=== PATIENT | male | born 2000 | race Caucasian/White ===

== ENCOUNTER 2024-07-11 05:46 | Day surgery (SDC) | payer BC ==
[2024-07-10 09:58] VITALS: BMI 37.2
[2024-07-11] MEDS ORDERED: Dexmedetomidine 200 MCG/2 ML VIAL ONE (06:48)
[2024-07-11] MEDS ORDERED: SUGAMMADEX SODIUM 200 MG/2 ML VIAL ONE ×2 (06:48→08:21)
[2024-07-11] MEDS ORDERED: Ondansetron PF 4 MG/2 ML Vial ONE (06:48)
[2024-07-11] MEDS ORDERED: fentaNYL PF 100 MCG/2 ML SYRINGE ONE (06:48)
[2024-07-11] MEDS ORDERED: Ketamine In 0.9 % NaCl 50 MG/5 ML SYRINGE ONE (06:48)
[2024-07-11] MEDS ORDERED: Dexamethasone 4 mg/ml Vial ONE (06:48)
[2024-07-11] MEDS ORDERED: PROPOFOL 40 ML ONE (06:48)
[2024-07-11] MEDS ORDERED: Rocuronium Bromide 10 MG/ML (10ML VIAL) ONE (06:48)
[2024-07-11] MEDS ORDERED: Dexamethasone 20 MG/5 ML VIAL ONE (06:48)
[2024-07-11] MEDS ORDERED: Lidocaine 1% PF 5 ML VIAL ONE (06:48)
[2024-07-11] MEDS ORDERED: Ferric Subsulfate 8 ML TOPICAL SOLN ONE (08:19)
[2024-07-11] MEDS ORDERED: fentaNYL 50 mcg/mL 1 mL Vial ONE ×2 (09:39→10:28)
[2024-07-11] MEDS ORDERED: Hydrocodone-Acetamin 15 ML UDCUP ONE (11:02)
== END 2024-07-11 12:05 | disposition home or self-care (01) ==
LOC: SDC 05:46
PROVIDERS: ATTEND Specialist
PROC: 0CTPXZZ Resection of Tonsils, External Approach (ICD-10-PCS; principal; 2024-07-11)
DX: J35.01 Chronic tonsillitis (principal)
CPT/HCPCS: 88304; J1100; J2405; J2704; J3010; J3490

== ENCOUNTER 2024-07-20 21:40 | Inpatient (IN) | payer BC ==
[2024-07-20 22:33] LABS: #Basophils 0.03 10x3/uL (0.0-0.2); %Basophils 0.4 % (0.0-1.0); %Eosinophils 1.5 % (0.0-10.0); %Lymphocytes 32.9 % (21.0-51.0); %Monocytes 17.3 % (0.0-10.0); %Neutrophils 47.5 % (42.0-75.0); Hematocrit 44.5 % (42.0-52.0); Hemoglobin 14.9 g/dL (14.0-18.0); Mean Corpuscular HGB CONC 33.5 g/dL (32.0-36.0); Mean Corpuscular Hemoglobin 30.5 pg (27.0-31.0); Mean Platelet Volume 11.2 fL (7.4-10.4); Platelet Count 214 10x3/uL (130-400); RBC Distribution Width 11.8 % (11.5-14.5); Red Blood Cell (RBC) Count 4.89 mill/uL (4.70-6.10)
[2024-07-20 22:45] LABS: ALT (SGPT) 68 U/L (8-55); AST (SGOT) 48 U/L (5-34); Albumin 3.6 g/dL (3.5-5.0); Alkaline Phosphatase 68 U/L (40-110); Anion Gap 16 mmol/L (10-20); BUN (Urea Nitrogen) 19 mg/dL (8.9-20.6); Bilirubin, Total 0.7 mg/dL (0.2-1.2); Calc. Creatinine Clearance 0 mL/min (70-130); Calcium 9.2 mg/dL (7.8-10.44); Carbon Dioxide 26 mmol/L (22-29); Chloride 103 mmol/L (98-107); Estimated GFR 115; Globulin 3.6 g/dL (2.4-3.5); Glucose 95 mg/dL (70-105); Potassium 3.9 mmol/L (3.5-5.1); Protein, Total 7.2 g/dL (6.0-8.3); Sodium 141 mmol/L (136-145)
[2024-07-20] MEDS ORDERED: Tranexamic Acid 1,000 MG/10 ML VIAL ONE (23:03)
[2024-07-20] MEDS ORDERED: Ondansetron PF 4 MG/2 ML Vial IVP PRN (23:59)
[2024-07-21] MEDS ORDERED: Tranexamic Acid 1,000 MG/10 ML VIAL ONE (00:15)
[2024-07-21] MEDS ORDERED: Ondansetron PF 4 MG/2 ML Vial ONE ×2 (00:28→02:07)
[2024-07-21] MEDS: Tranexamic Acid 500 MG in Syringe 0 ML NEB SCH (01:53)
[2024-07-21] MEDS: Tranexamic Acid 1,000 MG/10 ML VIAL IVP SCH (01:53)
[2024-07-21 01:59] VITALS: BMI 34.4
[2024-07-21] MEDS ORDERED: SUGAMMADEX SODIUM 200 MG/2 ML VIAL ONE (02:07)
[2024-07-21] MEDS ORDERED: Dexamethasone 20 MG/5 ML VIAL ONE (02:07)
[2024-07-21] MEDS ORDERED: Lidocaine 1% PF 5 ML VIAL ONE (02:07)
[2024-07-21] MEDS ORDERED: fentaNYL PF 100 MCG/2 ML SYRINGE ONE (02:07)
[2024-07-21] MEDS ORDERED: PROPOFOL 20 ML ONE ×2 (02:07→02:58)
[2024-07-21] MEDS ORDERED: Rocuronium Bromide 10 MG/ML (10ML VIAL) ONE (02:07)
[2024-07-21] MEDS ORDERED: SUCCINYLCHOLINE/SOD CL,ISO/PF 200 MG/10 ML SYRINGE FS ONE (02:14)
[2024-07-21 02:46] LABS: #Basophils 0.04 10x3/uL (0.0-0.2); %Basophils 0.7 % (0.0-1.0); %Eosinophils 1.6 % (0.0-10.0); %Lymphocytes 34.9 % (21.0-51.0); %Neutrophils 48.3 % (42.0-75.0); Hematocrit 38.2 % (42.0-52.0); Hemoglobin 12.8 g/dL (14.0-18.0); Mean Corpuscular HGB CONC 33.5 g/dL (32.0-36.0); Mean Corpuscular Hemoglobin 30.7 pg (27.0-31.0); Mean Corpuscular Volume 91.6 fL (78.0-98.0); Platelet Count 177 10x3/uL (130-400); RBC Distribution Width 11.9 % (11.5-14.5); Red Blood Cell (RBC) Count 4.17 mill/uL (4.70-6.10)
[2024-07-21 03:33] LABS: ALT (SGPT) 60 U/L (8-55); AST (SGOT) 39 U/L (5-34); Albumin 3.2 g/dL (3.5-5.0); Alkaline Phosphatase 58 U/L (40-110); Anion Gap 14 mmol/L (10-20); BUN (Urea Nitrogen) 19 mg/dL (8.9-20.6); Bilirubin, Total 0.7 mg/dL (0.2-1.2); Calc. Creatinine Clearance 226 mL/min (70-130); Calcium 8.5 mg/dL (7.8-10.44); Carbon Dioxide 24 mmol/L (22-29); Chloride 107 mmol/L (98-107); Estimated GFR 117; Globulin 3.1 g/dL (2.4-3.5); Glucose 104 mg/dL (70-105); Potassium 3.2 mmol/L (3.5-5.1); Protein, Total 6.3 g/dL (6.0-8.3); Sodium 142 mmol/L (136-145)
[2024-07-21] MEDS ORDERED: Promethazine HCl 25 MG/ML VIAL IM PRN (03:44)
[2024-07-21] MEDS ORDERED: Ondansetron HCl/PF 4 MG/2 ML Vial IVP PRN (03:44)
[2024-07-21] MEDS: Sodium Chloride 0.9% 1,000 ML IV SCH (03:48)
[2024-07-21 12:56] LABS: INR-International Normal Ratio 1.1; Prothrombin Time 14.4 sec (12.0-14.7)
[2024-07-21 12:57] LABS: PTT 30.7 sec (22.9-36.1)
[2024-07-21] MEDS: GUAIFENESIN SF SOLN 200 MG/10 ML UDCUP PO PRN (21:43)
[2024-07-21] MEDS: Acetaminophen 325 MG TAB PO PRN (21:43)
[2024-07-21] MEDS: Benzonatate 100 MG CAP PO PRN (21:43)
[2024-07-22 07:58] LABS: #Basophils 0.03 10x3/uL (0.0-0.2); %Basophils 0.3 % (0.0-1.0); %Eosinophils 0.3 % (0.0-10.0); %Lymphocytes 24.6 % (21.0-51.0); %Monocytes 9.9 % (0.0-10.0); %Neutrophils 64.6 % (42.0-75.0); Hematocrit 34.2 % (42.0-52.0); Hemoglobin 11.4 g/dL (14.0-18.0); Mean Corpuscular HGB CONC 33.3 g/dL (32.0-36.0); Mean Corpuscular Hemoglobin 30.9 pg (27.0-31.0); Mean Corpuscular Volume 92.7 fL (78.0-98.0); Mean Platelet Volume 11.4 fL (7.4-10.4); Platelet Count 165 10x3/uL (130-400); RBC Distribution Width 11.8 % (11.5-14.5); Red Blood Cell (RBC) Count 3.69 mill/uL (4.70-6.10)
[2024-07-22 08:19] LABS: Anion Gap 9 mmol/L (10-20); BUN (Urea Nitrogen) 14 mg/dL (8.9-20.6); Calc. Creatinine Clearance 269 mL/min (70-130); Calcium 8.5 mg/dL (7.8-10.44); Carbon Dioxide 24 mmol/L (22-29); Chloride 111 mmol/L (98-107); Estimated GFR 127; Glucose 94 mg/dL (70-105); Potassium 3.5 mmol/L (3.5-5.1); Sodium 140 mmol/L (136-145)
[2024-07-22 09:11] VITALS: BP 114/70; TEMP 97.9
== END 2024-07-22 09:48 | disposition home or self-care (01) | DRG 909 ==
LOC: ERS 21:40 → MSONC 07-21 01:12 → OBSVTOIN 07-21 13:51
PROVIDERS: ADMIT Internal Medicine; ATTEND Student in an Organized Health Care Education/Training Program
PROC: 0W33XZZ Control Bleeding in Oral Cavity and Throat, External Approach (ICD-10-PCS; principal; 2024-07-21)
DX: J95.830 Postprocedural hemorrhage of a respiratory system organ or structure following a respiratory system procedure (principal); Z79.899 Other long term (current) drug therapy; Z98.890 Other specified postprocedural states
CPT/HCPCS: 36415; 80048; 80053; 85025; 85610; 85730; 86850; 86900; 86901; 96376; G0378; J1100; J2405; J2704; J7030